=== PATIENT | female | born 1950 | race Two or more races ===

== ENCOUNTER 2023-07-13 20:04 | Emergency (ER) | payer MEDICARE, MEDICAID ==
[~2023-07-13] VITALS: Ht 157.5 cm; Wt 68.4 kg
[2023-07-13 20:13] VITALS: TEMP 98.8
[2023-07-13 21:45] VITALS: BP 134/81; PULSE 71; RESP 16
[2023-07-13] MEDS ORDERED: ACET-2080 PO (23:33)
[2023-07-13] MEDS ORDERED: ACETAMINOPHEN/CODEINE 300-30 MG TABLET PO ONE (23:45)
[2023-07-14] MEDS ORDERED: IBUP-1492 PO (00:05)
== END 2023-07-14 00:48 | disposition home or self-care (01) ==
LOC: EMS 20:06
DX: S62.102A Fracture of unspecified carpal bone, left wrist, initial encounter for closed fracture (principal); S42.402A Unspecified fracture of lower end of left humerus, initial encounter for closed fracture; Z98.890 Other specified postprocedural states; W01.0XXA Fall on same level from slipping, tripping and stumbling without subsequent striking against object, initial encounter; Y93.89 Activity, other specified; Y92.89 Other specified places as the place of occurrence of the external cause; Y99.8 Other external cause status
CPT/HCPCS: 29105; 99284